=== PATIENT | female | born 1940 | race Hispanic/Latino ===

== ENCOUNTER 2017-04-30 07:39 | Outpatient (CLI) | payer MEDICARE ==
[2017-04-30 08:30] LABS: Calcium 8.9 mg/dL (8.4-10.2); Chloride 94.1 mmol/L (98-107); Potassium 4.8 mmol/L (3.6-5.0)
--- NOTE | 2017-04-30 08:46 | Cat Scan Report ---
CT CHEST WITHOUT CONTRAST: HISTORY: Pulmonary fibrosis. COMPARISON: none. TECHNIQUE: Helical CT in 1.25mm intervals without IV contrast. Sagittal and coronal reformatted images. FINDINGS: Thyroid gland: Slightly heterogeneous but no focal nodule or enlargement. Tracheobronchial tree: Mild traction bronchiectasis is identified bilaterally which is commonly associated with pulmonary fibrosis. No occlusion or endobronchial filling defect. Esophagus: Normal. Heart: Normal. Pericardium: Normal. Mediastinum: Within normal limits. No bulky adenopathy or mass. The aorta is ectatic with scattered calcifications. Lung Hooper: There is extensive honeycombing throughout both lungs. This pattern predominates in the peripherally lung zones which is consistent with idiopathic pulmonary fibrosis. There is no evidence for infiltrate, mass, or pneumothorax. Pleural Spaces: Normal. Musculoskeletal: The bony structures are demineralized with diffuse degenerative changes. Chronic appearing compression deformity at T11 is identified. No definite acute fracture or suspicious bony lesion. IMPRESSION: Findings consistent with idiopathic pulmonary fibrosis. T11 compression deformity, likely chronic. Advanced thoracic spondylosis and osteopenia.
--- NOTE | 2017-04-30 10:55 | Fluoroscopy Report ---
UPPER GI AIR CONTRAST: History: Gastroesophageal reflux FINDINGS: The patient ingested barium without difficulty. No evidence for aspiration. A corkscrew esophagus is identified consistent with diffuse esophageal spasm. No evidence for esophageal mass, ring, webs or hiatal hernia. No reflux was witnessed during this exam. The gastric contour and position appear normal. There are no ulcerations or filling defects in the stomach. The duodenal bulb and duodenal sweep appear normal. IMPRESSION: Diffuse esophageal spasm. No mass or mucosal defect. No hiatal hernia or reflux was witnessed during this exam.
== END 2017-04-30 07:40 | disposition home or self-care (01) ==
LOC: CT 07:39
PROVIDERS: ATTEND Internal Medicine
DX: J84.10 Pulmonary fibrosis, unspecified (principal); K21.9 Gastro-esophageal reflux disease without esophagitis; J47.9 Bronchiectasis, uncomplicated; I70.0 Atherosclerosis of aorta; I77.819 Aortic ectasia, unspecified site; M43.8X4 Other specified deforming dorsopathies, thoracic region; M47.894 Other spondylosis, thoracic region; M85.88 Other specified disorders of bone density and structure, other site; K22.4 Dyskinesia of esophagus
CPT/HCPCS: 36415; 71250; 74246; 80048

== ENCOUNTER 2017-10-24 | Emergency (ER) | payer MEDICARE ==
[~2017-10-24] MED LIST: ADRENALIN ONE; MAGNESIUM SULFATE ONE
--- NOTE | 2017-10-24 00:17 | Emergency Department Report ---
HPI - General Chief Complaint: Cardiac Arrest/CPR Time Seen by Provider: 10/24/17 00:00 - HPI HPI: The patient is a 76-year-old female who presents via EMS in cardiac arrest. Per EMS, the patient was found down hours positive at home by the patient's approximately 50 minutes to 1 hour prior to arrival to the emergency department. EMS states that shortly after arrival to scene, the patient was found to be pulseless, with asystole rhythm on conveyor monitor, and CPR was initiated. The patient was intubated via EMS, and she received multiple rounds of CPR and medications per ACLS in route to the emergency department. ED Review of Systems ROS: Stated complaint: CARDIAC ARREST Other details as noted in HPI Comment: Unobtainable due to pts medical conditions (unresponsive) Physical Exam - Physical Exam Physical Exam: Physical Exam: General: well-nourished, well-developed Head: Normocephalic, atraumatic Eyes: Pupils were fixed and dilated, unresponsive to light ENT: ET tube present in mouth Neck: no appreciable carotid bruit or thrill Respiratory: Breath sounds equal with bagging/assisted ventilations Cardio: No distal pulses, extremities cold to touch Abdomen: soft abdomen, no obvious distention, no epigastric breath sounds with assisted ventilation Musc: No pitting edema Skin: No rash Neuro: Patient unresponsive to verbal or painful stimuli, no abnormal tonicity or posturing ED Medical Decision Making - Medical Decision Making The patient was seen and examined by myself and medial part arrival to the emergency department, at 11:53 PM. The patient is placed on a conveyor monitor and continuous pulse ox. On initial evaluation, the patient was found to be unresponsive in cardiac arrest. Initial monitor rhythm reveals asystole/PEA. IV access is established and the patient is given epinephrine and sodium bicarbonate. Despite multiple rounds of CPR and ACLS medications given to the patient, the patient remained without pulse and in cardiac arrest. As the patient has wide and fixed dilated pupils bilaterally, and has been in cardiac arrest for greater than 30 minutes, the patient has very poor chance of return of spontaneous circulation. The resuscitation team was queried regarding additional resuscitation efforts. No further ideas were volunteered. The resuscitation team agreed that best efforts to resuscitate the patient have been made. The resuscitation code is discontinued and the patient is pronounced at 12:04 AM. Family members are informed of the patient's passing. They are allowed to meet with the patient's body subsequently. Critical care attestation.: If time is entered above; I have spent that time in minutes in the direct care of this critically ill patient, excluding procedure time. ED Disposition Clinical Impression: Cardiac arrest Disposition: DC-20 Is pt being admited?: No Does the pt Need Aspirin: No Condition: Critical Referrals: PRIMARY CARE, [Primary Care Provider] - 3-5 Days Time of Disposition: 00:05
== END 2017-10-24 03:59 ==
LOC: ED
DX: I46.9 Cardiac arrest, cause unspecified (principal)
CPT/HCPCS: 99285; J0171; J3475